=== PATIENT | male | born 1930 | race Caucasian/White ===

== ENCOUNTER 2016-12-10 11:20 | Observation (INO) | payer MEDICARE ==
[~2016-12-10] VITALS: Ht 182.9 cm; Wt 101.8 kg
[~2016-12-10 11:20] MED LIST: FUROSEMIDE20 MG PO; FUROSEMIDE40 MG PO; GUAIFENESI100 MG/5 M PO; IPRAT-ALBUT 0.5-3 ML UPD; LOPID600 MG PO; MEDROL DOSE PACK4 MG PO; PREDNISONE20 MG PO; PROTONIX40 MG PO; SINGULAIR10 MG PO; SYMBICORT 16010.2 GM INH; ULORIC40 MG PO; ULTRAM50 MG PO; ZESTRIL40 MG PO; ZOCOR80 MG PO; ZYLOPRIM100 MG PO
--- NOTE | 2016-12-10 15:09 | NUR ---
Rehab Prescreening Consult recieved and the chart has been reviewed. He is managed medicare [facility] and will need a preauth. An OT and a PT eval will be needed. Relayed this information to the ER CM Antoinette Ribera. Rehab will follow. Sandy Quintanilla RN Clinical Liaison, [facility]
--- NOTE | 2016-12-10 16:42 | NUR ---
RECEIVED TO ROOM 2215 AT THIS TIME FROM ER VIA STRETCHER. FAMILY AT BEDSIDE. PT ALERT AND ORIENTED X4, BUT EXTREMELY HARD OF HEARING AND HEARING AIDES ARE BROKEN. SPLINT TO RIGHT WRIST AND SLING TO RIGHT ARM. ASSESSMENT AND HISTORY OBTAINED PER FLOWSHEET. BED ALARM ON AND FALL PRECAUTIONS INITIATED.
[2016-12-10] MEDS ORDERED: CELEXA10 MG PO (16:45)
[2016-12-10] MEDS ORDERED: SYMBICORT 16010.2 GM INH (16:46)
[2016-12-10] MEDS ORDERED: PROTONIX40 MG PO (16:47)
[2016-12-10] MEDS ORDERED: FLOMAX0.4 MG PO (16:47)
[2016-12-10] MEDS ORDERED: ULORIC40 MG PO (16:48)
[2016-12-10 17:10] VITALS: BP 138/70; Ht 182.9 cm; Wt 101.8 kg
--- NOTE | 2016-12-10 20:34 | NUR ---
REPOSITIONED PATIENT WITH CLOTILDE DAWSON. PATIENT DENIES OTHER NEEDS AT THIS TIME. BED IN LOWEST POSITION, CALL LIGHT WITHIN REACH, AND BED ALARM ON. ENCOURAGED THE PATIENT TO CALL IF HE HAS NEEDS.
[2016-12-11] VITALS: BP 118/55
--- NOTE | 2016-12-11 02:48 | NUR ---
RESTING WELL IN BED NO ACUTE DISTRESSNOTED VOICES ALL NEEDS TO STAFF CALL LIGHT IN REACH SIDE RAILS UP X 2
[2016-12-11 04:00] VITALS: BP 177/55
--- NOTE | 2016-12-11 07:20 | NUR ---
REPORT RECEIVED FROM VOLUNTEER FIREFIGHTER NURSE. CALL LIGHT IN REACH.
[2016-12-11 08:17] VITALS: BP 108/72
--- NOTE | 2016-12-11 09:03 | NUR ---
ASSESSMENT COMPLETED. AM MEDS ADMINISTERED. SCDs APPLIED TO BLE. BED ALARM ON. CALL LIGHT IN REACH. WILL CONTINUE WITH PLAN OF CARE. CLEAN URINAL TAKEN IN ROOM TO COLLECT SAMPLE FOR UA.
--- NOTE | 2016-12-11 09:08 | NUR ---
Patient Name: THAIS MCCANN Admission Status: ER Accout number: [id number] Admission Date: 12-10-2016 : 1932 Admission Diagnosis: Attending: JAMAR Current LOS: 1 Anticipated DC Date: Planned Disposition: Primary Insurance: [employer] [facility] Discharge Planning Comments: ORDER RECEIVED FOR DISCHARGE PLANNING TO [facility]. I SPOKE WITH AMADOR AT [facility] AND SHE STATED THAT THEY WERE WAITING ON ADMINISTRATION TO APPROVE THIS PATIENT BECAUSE OF LACK OF PAYMENT FROM INSURANCE. I SPOKE WITH CARLOS MOHAMUD WITH [facility] ([phone]) SHE STATED THAT SHE WOULD LOOK INTO THIS AND GET BACK WITH ME. SHE ALSO STATED THAT SHE WOULD COME TO THE HOSPITAL AND SEE THE PATIENT AROUND 1:00 THIS AFTERNOON Telephone Lines Repairer: Luciana Dubois
[2016-12-11 09:13] LABS: HEMATOCRIT 35.3 % (42.0-54.0); HEMOGLOBIN 11.7 g/dL (13.5-17.5); MCH 31.6 pg (26.0-34.0); MCHC 33.1 g/dL (31.0-37.0); MCV 95.4 fL (80.0-100.0); MEAN PLATELET VOLUME 9.3 fL (7.4-10.4); RBC 3.7 10x6/uL (4.20-6.10); RDW 14.9 % (11.5-14.5); WBC 12.5 10x3/uL (4.8-10.8)
[2016-12-11 09:22] LABS: ANION GAP 9.3 mmol/L (8-16); CARBON DIOXIDE 29.4 mmol/L (21.0-32.0); CREATININE - SERUM 1.4 mg/dL (0.6-1.3); POTASSIUM - SERUM 4.7 mmol/L (3.5-5.1)
--- NOTE | 2016-12-11 10:49 | NUR ---
TRAMADOL PO PER C/O PAIN. CALL LIGHT IN REACH.
[2016-12-11] MEDS ORDERED: ULTRAM50 MG PO (11:08)
--- NOTE | 2016-12-11 11:34 | NUR ---
* Is the patient Alert and Oriented? Yes 0 * PCP ALYSSA 0 * Pharmacy [facility] [place] 0 * Preadmission Environment Home with Family 0 * ADLs Partial Dependent 0 * Partial ADLs (Assistance needed) Bathing 0 * Equipment Oxygen Walker 0 * List name and contact numbers for known caregivers / representatives who currently or will assist patient after discharge: AYSE LLANOS (DAUGHTER) [phone] 0 * Community resources currently utilized None 0 * Additional services required to return to the preadmission environment? Yes 0 * Can the patient safely return to the preadmission environment? Yes 0 * Has this patient been hospitalized within the prior 30 days at any hospital? No 0 Grand Total: 0 Patient Name: THAIS MCCANN Admission Status: ER Accout number: [id number] Admission Date: 12-10-2016 : 1932 Admission Diagnosis: Attending: JAMAR Current LOS: 1 Anticipated DC Date: Planned Disposition: [facility] Primary Insurance: [employer] [facility] Discharge Planning Comments: CM met with patient and spoke with his daughter. Patient will be discharging today to [facility] (TIARRA signed) via their van. Patient currently lives at home with his daughter (Ayse- [phone]) When I spoke with Ayse she stated that he is partial dependent at home. He needs help with his bathing and his medications. He uses O2 at night and a walker. DARRELL spoke with Aziza at [facility] and she has been in touch with Ayse. CM will continue to follow and assist as needed Analysis Evaluator: Luciana Dubois
[2016-12-11 12:01] VITALS: BP 87/50
--- NOTE | 2016-12-11 12:04 | NUR ---
CLEAN CATCH URINE SAMPLE COLLECTED AND SENT TO LAB FOR UA.
--- NOTE | 2016-12-11 12:45 | NUR ---
IV DC'D WITH TIP INTACT. DC INSTRUCTIONS EXPLAINED TO PATIENT. VERBALIZED UNDERSTANDING AND PAPERWORK SIGNED.
[2016-12-11 12:48] LABS: APPEARANCE CLEAR (CLEAR); BILIRUBIN NEGATIVE (NEGATIVE); COLOR DK YELLOW (YELLOW); GLUCOSE NEGATIVE (NEGATIVE); KETONE NEGATIVE (NEGATIVE); LEUKOCYTE ESTERASE 1+ (NEGATIVE); NITRITE NEGATIVE (NEGATIVE); PROTEIN NEGATIVE (NEGATIVE); SPECIFIC GRAVITY 1.015 (1.005-1.020); UROBILINOGEN NORMAL (NORMAL)
[2016-12-11 12:49] LABS: BACTERIA FEW /hpf (NONE SEEN)
--- NOTE | 2016-12-11 13:01 | NUR ---
AWAITING DC TO [facility]. NO NEEDS AT PRESENT.
--- NOTE | 2016-12-11 13:04 | NUR ---
REPORT CALLED TO SALVADOR CAMPOS, AT [facility]. WAITING ON RIDE AT THIS TIME.
--- NOTE | 2016-12-11 13:35 | NUR ---
DC'D TO [facility]ICLE VIA WC WITH [facility] STAFF.
== END 2016-12-11 13:35 ==
LOC: D.ER 11:20 → OBSVTIME 14:59 → D.MS 14:59
PROVIDERS: ADMIT Orthopaedic Surgery
DX: S02.2XXA Fracture of nasal bones, initial encounter for closed fracture (principal); W18.39XA Other fall on same level, initial encounter; S42.202A Unspecified fracture of upper end of left humerus, initial encounter for closed fracture; S52.502A Unspecified fracture of the lower end of left radius, initial encounter for closed fracture; J44.1 Chronic obstructive pulmonary disease with (acute) exacerbation; I12.9 Hypertensive chronic kidney disease with stage 1 through stage 4 chronic kidney disease, or unspecified chronic kidney disease; N18.9 Chronic kidney disease, unspecified; I25.10 Atherosclerotic heart disease of native coronary artery without angina pectoris; M10.9 Gout, unspecified; Z86.73 Personal history of transient ischemic attack (TIA), and cerebral infarction without residual deficits; R53.1 Weakness